=== PATIENT | female | born 2000 | race Caucasian/White ===

== ENCOUNTER 2021-03-15 23:45 | Inpatient (IN) | payer OTHER ==
[~2021-03-15] VITALS: Ht 152.4 cm; Wt 77.3 kg
[2021-03-16 00:08] LABS: BASO % 0.4 % (0.0-1.0); EOS # 0.1 10^3/uL (0.0-0.5); EOS % 0.9 % (0.0-3.0); HEMATOCRIT 32.2 % (36.0-47.0); HEMOGLOBIN 8.9 g/dl (12.0-15.5); LYMPH # 2.3 10^3/uL (1.5-5.0); MEAN CORPUSCULAR HEMOGLOBIN 17.2 pg (27.0-33.0); MEAN CORPUSCULAR HGB CONC 27.6 g/dl (32.0-36.5); MEAN CORPUSCULAR VOLUME 62.2 fl (80.0-96.0); MONO # 0.7 10^3/uL (0.0-0.8); MONO % 8.1 % (2.0-8.0); NEUTROPHILS # 5.9 10^3/uL (1.5-8.5); NEUTROPHILS % 64.9 % (36.0-66.0); PLATELET COUNT, AUTOMATED 479 10^3/uL (150-450); RED BLOOD COUNT 5.18 10^6/uL (4.00-5.40)
[2021-03-16] MEDS ORDERED: CHARCOAL ACTIVATED LIQUID 25 GM/120 ML BTL PO ONE (00:25)
[2021-03-16 00:34] LABS: HCG, SERUM QUALITATIVE NEGATIVE (NEGATIVE)
[2021-03-16 00:38] LABS: ACETAMINOPHEN LEVEL 71.7 UG/ML (10.0-30.0); ALBUMIN 2.6 GM/DL (3.2-5.2); ALT/SGPT 24 U/L (12-78); BILIRUBIN,DIRECT < 0.1 MG/DL (0.0-0.2); BILIRUBIN,TOTAL 0.1 MG/DL (0.2-1.0); BLOOD UREA NITROGEN 9 MG/DL (7-18); CALCIUM LEVEL 9.2 MG/DL (8.5-10.1); CARBON DIOXIDE LEVEL 25 MEQ/L (21-32); CHLORIDE LEVEL 110 MEQ/L (98-107); ETHYL ALCOHOL (ETHANOL) < 0.003 % (0.000-0.010); GLUCOSE, FASTING 115 MG/DL (70-100); POTASSIUM SERUM 4.2 MEQ/L (3.5-5.1); SALICYLATE LEVEL < 1.7 MG/DL (5.0-30.0); SODIUM LEVEL 141 MEQ/L (136-145); TOTAL PROTEIN 6.6 GM/DL (6.4-8.2)
[2021-03-16 01:27] LABS: AMPHETAMINES LEVEL URINE NEGATIVE (NEGATIVE); BARBITURATES URINE NEGATIVE (NEGATIVE); BENZODIAZEPINES URINE NEGATIVE (NEGATIVE); CANNABINOIDS URINE NEGATIVE (NEGATIVE); COCAINE METABOLITE URINE NEGATIVE (NEGATIVE); METHADONE URINE NEGATIVE (NEGATIVE); OPIATES URINE NEGATIVE (NEGATIVE); PHENCYCLIDINE URINE NEGATIVE (NEGATIVE)
[2021-03-16 07:02] LABS: RSV AMPLIFICATION NEGATIVE (NEGATIVE)
[2021-03-16] MEDS ORDERED: HOME MED LIST COMPLETE! XX SCH (08:05)
[2021-03-18] MEDS ORDERED: traZODone 50 MG TAB PO PRN (16:00)
[2021-03-18] MEDS ORDERED: MAALOX 30 ML SUSP *UDC PO PRN (16:00)
[2021-03-18] MEDS ORDERED: NICOTINE 21MG/24HR 1 EA TRANSDERMAL TD PRN (16:00)
[2021-03-18] MEDS ORDERED: OLANZapine ORAL DISINTEGRATING TAB 5MG PO PRN (16:00)
[2021-03-18] MEDS ORDERED: MOM 30ML SUSPENSION UDC PO PRN (16:00)
[2021-03-18] MEDS ORDERED: ACETAMINOPHEN TAB 650MG DOSE (2X325MG) PO PRN (16:00)
[2021-03-19 06:09] VITALS: BP 115/57
[2021-03-19 18:08] VITALS: BP 117/56
[2021-03-20 06:35] VITALS: BP 98/61
[2021-03-20] MEDS: buPROPion **XL** TABLET 150MG (WELLBUTRIN XL) PO SCH (09:54)
[2021-03-20] MEDS: FLUoxetine 20 MG CAP PO SCH (09:54)
[2021-03-20 16:45] VITALS: BP 132/60
[2021-03-21 06:13] VITALS: BP 112/67
[2021-03-21] MEDS: buPROPion **XL** TABLET 150MG (WELLBUTRIN XL) PO SCH (10:01)
[2021-03-21] MEDS: FLUoxetine 20 MG CAP PO SCH (10:01)
[2021-03-21 18:00] VITALS: BP 140/81
[2021-03-22 06:25] VITALS: BP 137/63
[2021-03-22] MEDS: FLUoxetine 20 MG CAP PO SCH (08:30)
[2021-03-22] MEDS: buPROPion **XL** TABLET 150MG (WELLBUTRIN XL) PO SCH (08:30)
[2021-03-22] MEDS ORDERED: FLUO20CA22 PO (08:53)
[2021-03-22] MEDS ORDERED: BUPR150T12 PO (08:53)
[2021-03-22] MEDS ORDERED: NICO21PAT TD (08:53)
== END 2021-03-22 12:04 | disposition home or self-care (01) | DRG 756 ==
LOC: M ED 23:45 → M ED INP 03-18 16:00 → M PSY 03-18 17:34
PROVIDERS: ADMIT Student in an Organized Health Care Education/Training Program; ATTEND Student in an Organized Health Care Education/Training Program
DX: F41.8 Other specified anxiety disorders (principal); F32.A Depression, unspecified; F60.89 Other specific personality disorders; Z20.822 Contact with and (suspected) exposure to COVID-19; Z91.51 Personal history of suicidal behavior; Z63.8 Other specified problems related to primary support group; R45.851 Suicidal ideations

== ENCOUNTER → 2021-03-25 | Outpatient (REF) | payer OTHER ==
[~2021-03-25] MED LIST: BUPR150T12 PO; FLUO20CA22 PO; NICO21PAT TD
== END ==
LOC: M SFHCPLAZ 15:58
PROVIDERS: ATTEND Family Medicine
DX: Z53.20 Procedure and treatment not carried out because of patient's decision for unspecified reasons (principal)